=== PATIENT | female | born 1985 | race Two or more races ===

== ENCOUNTER 2016-09-25 21:20 | Emergency (ER) | payer SELFPAY ==
[~2016-09-25] VITALS: Ht 165.1 cm; Wt 98.9 kg
--- NOTE | 2016-09-25 21:40 | NUR ---
To bed a 31 yo mohawk speaking female bibself with c/o of left sided numbness since 1729 today. Per patient she is also having headache for 3 days, worse today. Patient is aaox3, ambulatory. Neurocheck done. Unable to recognize sharp and dull object on the affected side. Skin warm and dry. VSS. Gowned. 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 Waiting for er md arthur.
--- NOTE | 2016-09-25 21:55 | NUR ---
Krish worrell in [facility] - 09/25/16 at [address] Rojas at [facility].
--- NOTE | 2016-09-25 22:00 | NUR ---
RU[employer]ER [employer] Degrasse at bedside for eval.
[2016-09-25] MEDS ORDERED: IV NS 0.9% 1,000 ML ONE (22:11)
[2016-09-25] MEDS ORDERED: METOCLOPRAMIDE HCL 10 MG/2 ML VIAL ONE (22:11)
[2016-09-25] MEDS ORDERED: IV SET PRIMARY 1 EA INFUS.SET MC ONE (22:11)
[2016-09-25] MEDS ORDERED: diphenhydrAMINE HCL 50 MG/ML VIAL ONE (22:11)
--- NOTE | 2016-09-25 22:25 | NUR ---
started a saline lock 20g on left ac, blood drawn and sent to lab.
--- NOTE | 2016-09-25 22:27 | NUR ---
Medicated patient as ordered.
--- NOTE | 2016-09-25 22:29 | NUR ---
patient taken to ct.
[2016-09-25] MEDS ORDERED: IV NS 0.9% 1,000 ML BAG IV ONE (22:30)
[2016-09-25] MEDS ORDERED: diphenhydrAMINE HCL 50 MG/ML VIAL IV ONE (22:30)
[2016-09-25] MEDS ORDERED: METOCLOPRAMIDE HCL 10 MG/2 ML VIAL IV ONE (22:30)
[2016-09-25 22:36] LABS: BASOPHILS # (AUTO) 0.1 /CMM (0.0-0.2); BASOPHILS % (AUTO) 0.5 % (0.0-2.0); EOSINOPHILS # (AUTO) 0.6 /CMM (0.0-0.7); EOSINOPHILS % (AUTO) 5.7 % (0.0-6.0); HEMATOCRIT 43 % (33-45); HEMOGLOBIN 13.6 g/dL (11.5-14.8); LYMPHOCYTES # (AUTO) 4.3 /CMM (0.8-4.8); LYMPHOCYTES % (AUTO) 39.6 % (20.0-44.0); MEAN CORPUSCULAR HEMOGLOBIN 30 PG (26.0-33.0); MEAN CORPUSCULAR HGB CONC 32 g/dl (31.0-36.0); MEAN CORPUSCULAR VOLUME 94 fL (82-100); MONOCYTES # (AUTO) 0.6 /CMM (0.1-1.30); MONOCYTES % (AUTO) 5.8 % (2.0-12.0); NEUTROPHILS # (AUTO) 5.3 /CMM (1.8-8.9); NEUTROPHILS % (AUTO) 48.4 % (43.0-81.0); PLATELET COUNT (AUTO) 323 /CMM (150-450); RDW COEFFICIENT OF VARIATION 14.4 (11.5-15.0); RED BLOOD CELL COUNT(AUTO) 4.54 MIL/uL (4.0-5.2)
[2016-09-25 22:46] LABS: CALCIUM, SERUM 8.7 mg/dL (8.5-10.1); POTASSIUM 3.6 mmol/L (3.5-5.1)
[2016-09-25 23:29] LABS: INR 0.98 (0.87-1.13); PROTHROMBIN TIME 10.5 SECS (9.5-12.7)
--- NOTE | 2016-09-25 23:32 | NUR ---
IV removed. Catheter intact and site benign. Pressure and 4x4 applied to site. No bleeding noted. Patient discharged to home in stable condition. Written and verbal after care instructions given. Patient verbalizes understanding of instruction. Patient is ambulatory with steady gait.
[2016-09-25 23:34] VITALS: BP 127/79
== END 2016-09-25 23:39 | disposition home or self-care (01) ==
LOC: ER 21:22
DX: R07.89 Other chest pain (principal); R51 Headache
CPT/HCPCS: 36415; 70450; 71010; 80048; 85025; 85730; 93005; 96361; 96374; 96375; 99285; A4606; J1200; J2765; J7030; Z7610